=== PATIENT | male | born 1985 | race Caucasian/White ===

== ENCOUNTER 2017-01-06 23:55 | Emergency (ER) | payer OTHER ==
--- NOTE | 2017-01-07 01:24 | ED ORDER SUMMARY ---
..... Patient: LEOBARDO STEPHENS OrderSheet [facility] VisitID: [id number] [place] [address] 31y, M Registration Date/Time: 01/07/2017 ORDER SHEET Weight: 119.7 kg (stated) Allergies: Penicillins GENERAL ORDERS: Suture Set-up: (00:28 01/07/2017 Myra Weber) (0:31 Lucio Do) MEDICATION ORDERS: IV FLUIDS: ORDER SHEET NOTES: [Electronically signed by Trev Mccartney Dr. (01:26 01/07/2017)] [Electronically signed by Quentin Campbell R.N. (01:41 01/07/2017)] [Electronically locked/signed by Quentin Campbell R.N. (:41 01/07/2017)]
--- NOTE | 2017-01-07 01:24 | ED ORDER SUMMARY ---
..... Patient: LEOBARDO STEPHENS OrderSheet [facility] VisitID: [id number] [place] [address] 31y, M Registration Date/Time: 01/07/2017 ORDER SHEET Weight: 119.7 kg (stated) Allergies: Penicillins GENERAL ORDERS: Suture Set-up: (00:28 01/07/2017 Myra Weber) (0:31 Lucio Do) MEDICATION ORDERS: IV FLUIDS: ORDER SHEET NOTES: [Electronically signed by Trev Mccartney Dr. (01:26 01/07/2017)] [Electronically signed by Quentin Campbell R.N. (01:41 01/07/2017)] [Electronically locked/signed by Quentin Campbell R.N. (:41 01/07/2017)]
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
--- NOTE | 2017-01-07 01:42 | ED MED RECONCILIATION SUMMARY ---
Patient: LEOBARDO STEPHENS Medication Reconciliation Report [facility] VisitID: [id number] [address] [place] [place] [address] 31y, M Registration Date/Time: 01/07/2017 Weight: 119.7 kg Height/Length: 71 in. BMI: 36.8 ALLERGIES: Penicillins The patient's Home Medications are listed below: CONTINUE TAKING THE FOLLOWING MEDICATIONS: Cyclobenzaprine HCl Oral The source(s) of the original Home Medication information: Not obtained. The following Medications were given to the patient in the Emergency Department: None. The following Medications were prescribed to the patient: None.
--- NOTE | 2017-01-07 01:42 | ED MAR SUMMARY ---
..... Medication Administration Record [facility] [address] [place], [place] [id number] Patient: NE STEPHENSGeovani Lamb Visit ID: [id number] 31y, M Weight: 119.7 kg Height/Length: 71 in BMI: 36.8 ALLERGIES: Penicillins
--- NOTE | 2017-01-07 01:42 | ED MED RECONCILIATION SUMMARY ---
Patient: LEOBARDO STEPHENS Medication Reconciliation Report [facility] VisitID: [id number] [address] [place] [place] [address] 31y, M Registration Date/Time: 01/07/2017 Weight: 119.7 kg Height/Length: 71 in. BMI: 36.8 ALLERGIES: Penicillins The patient's Home Medications are listed below: CONTINUE TAKING THE FOLLOWING MEDICATIONS: Cyclobenzaprine HCl Oral The source(s) of the original Home Medication information: Not obtained. The following Medications were given to the patient in the Emergency Department: None. The following Medications were prescribed to the patient: None.
--- NOTE | 2017-01-07 01:42 | ED MAR SUMMARY ---
..... Medication Administration Record [facility] [address] [place], [place] [id number] Patient: NE STEPHENSGeovani Lamb Visit ID: [id number] 31y, M Weight: 119.7 kg Height/Length: 71 in BMI: 36.8 ALLERGIES: Penicillins
--- NOTE | 2017-01-07 01:42 | ED DISCHARGE INSTRUCTIONS ---
Patient: LEOBARDO STEPHENS General Instructions [facility] VisitID: [id number] [place] [address] 31y, M Registration Date/Time: 01/07/2017 Single deep laceration to the left forearm.Treatment of laceration not delayed. No infection or foreign body present. INSTRUCTIONS Protect wound and keep wound area clean. Change dressing twice daily. You may wash wounds briefly, then dry. Apply bacitracin twice daily. Sutures/jessica should be removed in seven days. Your Current Medications: CONTINUE TAKING THE FOLLOWING MEDICATIONS: Cyclobenzaprine HCl Oral. Follow-up: Follow up with your doctor in seven days for suture removal. Call for an appointment. Screening today revealed the patient's blood pressure to be in the hypertensive range. The patient should follow up with a primary care provider for blood pressure management. ADDITIONAL INFORMATION Laceration (All Closures) Alaceration is a cut through the skin. This will usually require stitches (sutures) or jessica if it is deep. Minor cuts may be treated with a surgical tape closure orskin glue. Home care The following guidelines will help you care for your laceration at home: Extremity, face, or trunk wounds Keep the wound clean and dry. If a bandage was applied and it becomes wet or dirty, replace it. Otherwise, leave it in place for the first 24 hours. If stitches or jessica were used, clean the wound daily. After removing the bandage, wash the area with soap and water. Use a wet cotton swab to loosen and remove any blood or crust that forms. The doctor may prescribe an antibiotic cream or ointment to prevent infection. Do not stop taking this medication until you have finished the prescribed course or the doctor tells you to stop. The doctor may also prescribe medications for pain. Follow the doctors instructions for taking these medications. You may remove the bandage to shower as usual after the first 24 hours, but do not soak the area in water (no swimming) until the stitches or jessica are removed. If surgical tape was used, keep the area clean and dry. If it becomes wet, blot it dry with a towel. If skin glue was used, do not scratch, rub, or pick at the adhesive film. Do not place tape directly over the film. Do not apply liquid, ointment, or creams to the wound while the film is in place. Do not clean the wound with peroxide and do not apply ointments. Avoid activities that cause heavy sweating until the film has fallen off. Protect the wound from prolonged exposure to sunlight or tanning lamps. You may shower as usual but do not soak the wound in water (no baths or swimming). The film will fall off by itself in 510 days. Scalp wounds During the first two days, you may carefully rinse your hair in the shower to remove blood, glass or dirt particles. After two days, you may shower and shampoo your hair normally. Do not soak your scalp in the tub or go swimming until the stitches or jessica have been removed. Talk with your doctor before applying any antibiotic ointment to the wound. Mouth wounds Eat soft foods to reduce pain. If the cut is inside of your mouth, clean by rinsing after each meal and at bedtime with a mixture of equal parts water and hydrogen peroxide (do not swallow!). Or, you can use a cotton swab to directly apply hydrogen peroxide onto the cut. Mouth wounds can be painful when eating. You may use an [id number] local numbing solution for pain relief. If this is not available, you may use any numbing solution for teething babies. You may apply this directly to the sores with a cotton-tip swab or with your finger. Follow-up care Follow up with your health care provider. Most skin wounds heal within ten days. Mouth and facial wounds heal within five days. However, even with proper treatment, a wound infection may sometimes occur. Therefore, you should check the wound daily for signs of infection listed below. Stitches should be removed from the face within five days; stitches and jessica should be removed from other parts of the body within 714 days. If dissolving stitches were used in the mouth, these will fall out or dissolve without the need for removal. If tape closures were used, remove them yourself if they have not fallen off after 7 days. Ifskin glue was used, the film will fall off by itself in 510 days. When to seek medical care Get prompt medical attention if any of these occur: Bleeding not controlled by direct pressure Signs of infection, including increasing pain in the wound, increasing wound redness or swelling, or pus coming from the wound Fever of 100.4F (38C) or higher, or as directed by your health care provider Stitches or jessica come apart or fall out or surgical tape falls off before 7 days Wound edges re-open Bandage Change If the bandage becomes wet or dirty, replace it. Otherwise, leave it in place for the first 24 hours. Then once a day: After removing the bandage, wash the area with soap and water. Use a wet cotton swab to loosen and remove any blood or crust that forms on the wound. After cleaning, apply a thin layer of antibiotic ointment or cream. Reapply the bandage. You may shower as usual after the first 24 hours. If the bandage is on an arm or leg, cover it with a plastic bag rubber banded at both ends before showering. No tub baths or swimming until the bandage is removed and the wound healed (at least 7 days). You have been given the following additional information: Laceration, All Dressing Change (Electronically signed by Trev Mccartney Dr. 01/07/2017 1:26)
== END 2017-01-07 01:39 | disposition home or self-care (01) ==
LOC: ED SRH 23:55
DX: S51.812A Laceration without foreign body of left forearm, initial encounter (principal); W01.0XXA Fall on same level from slipping, tripping and stumbling without subsequent striking against object, initial encounter; Y93.9 Activity, unspecified; Y99.9 Unspecified external cause status; Y92.009 Unspecified place in unspecified non-institutional (private) residence as the place of occurrence of the external cause; F17.200 Nicotine dependence, unspecified, uncomplicated